=== PATIENT | female | born 1950 ===

== ENCOUNTER 2023-02-04 17:19 | Outpatient (CLI) | payer MEDICARE ==
--- NOTE | 2023-02-04 22:59 | XRAY Report ---
PROCEDURE: Knee 3 View RT INDICATIONS: RIGHT KNEE SPRAIN TECHNIQUE: 3 views of the right knee(s) were acquired. COMPARISON: None. FINDINGS: Bones: No fractures or dislocations. No suspicious bony lesions. Tricompartmental degenerative ch anges of the right knee. Soft tissues: Small knee joint effusion. No suspicious soft tissue calcifications or masses. IMPRESSION: Right knee without acute fracture or dislocation. 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 If there is high clinical concern for occult fracture, consider further evaluation with CT or MRI. Reviewed by: Santosh Camarillo MD on 02/04/2023 10:57 PM PDT Approved by: Santosh Camarillo MD on 02/04/2023 10:57 PM PDT Station ID: [id number]
== END 2023-02-04 23:59 | disposition home or self-care (01) ==
LOC: DI.S 17:19
PROVIDERS: ATTEND Emergency Medicine
DX: M17.11 Unilateral primary osteoarthritis, right knee (principal); M25.461 Effusion, right knee